=== PATIENT | male | born 1990 | race African-American/Black ===

== ENCOUNTER 2017-09-15 10:38 | Emergency (ER) | payer SELFPAY ==
[2017-09-15 11:01] VITALS: BP 132/81
--- NOTE | 2017-09-15 11:28 | ER Document Report ---
ED Respiratory Problem - General Chief Complaint: Cough Stated Complaint: COUGH Time Seen by Provider: 09/15/17 11:18 Mode of Arrival: Ambulatory Information source: Patient TRAVEL OUTSIDE OF THE [place] IN LAST 30 DAYS: No - HPI Patient complains to provider of: Cough - pt. states he has had a cough productive of yellow mucous for the past 1-2 days. He is a cig. smoke but denies fever - Related Data Allergies/Adverse Reactions: No Known Allergies Allergy (Unverified 09/15/17 11:01) Past Medical History - General Information source: Patient - Social History Smoking Status: Current Every Day Smoker Cigarette use (# per day): Yes Chew tobacco use (# tins/day): No Smoking Education Provided: Yes Family History: Reviewed & Not Pertinent Pulmonary Medical History: Reports: Hx Asthma - Immunizations Hx Diphtheria, Pertussis, Tetanus Vaccination: No Review of Systems - Review of Systems Constitutional: No symptoms reported EENT: No symptoms reported Cardiovascular: No symptoms reported Respiratory: See HPI, Cough Gastrointestinal: No symptoms reported -: Yes All other systems reviewed and negative Physical Exam - Vital signs Vitals: Temp Pulse Resp BP Pulse Ox 99.5 F 78 16 132/81 H 99 09/15/17 10:57 09/15/17 10:57 09/15/17 10:57 09/15/17 10:57 09/15/17 10:57 - General General appearance: Appears well In distress: None - HEENT Head: Normocephalic Pharynx: Normal Neck: Normal - Respiratory Respiratory status: No respiratory distress Breath sounds: Normal - Cardiovascular Rhythm: Regular Heart sounds: Normal auscultation Course - Vital Signs Vital signs: Temp Pulse Resp BP Pulse Ox 99.5 F 78 16 132/81 H 99 09/15/17 10:57 09/15/17 10:57 09/15/17 10:57 09/15/17 10:57 09/15/17 10:57 Discharge - Discharge Clinical Impression: Bronchitis Condition: Stable Disposition: HOME, SELF-CARE Additional Instructions: rest, take meds as prescribed, return if worse Prescriptions: Azithromycin [Zithromax Tri-Nigel] 500 mg PO DAILY #1 pkg Referrals: STEPHANIE ANDERSON MD [ACTIVE STAFF] - Follow up as needed
== END 2017-09-15 11:35 | disposition home or self-care (01) ==
LOC: ER 10:38
DX: J40 Bronchitis, not specified as acute or chronic (principal); F17.210 Nicotine dependence, cigarettes, uncomplicated
CPT/HCPCS: 99283